=== PATIENT | male | born 1985 | race Caucasian/White ===

== ENCOUNTER 2019-03-12 12:53 | Emergency (ER) | payer OTHER, BC ==
[2019-03-12 13:02] VITALS: BP 133/80; PULSE 87; TEMP 97.7; BMI 23.6
--- NOTE | 2019-03-12 13:26 | PDOC ---
History of Present Illness - General Chief Complaint: Pain Stated Complaint: NECK/SHOULDER PAIN Time Seen by Provider: 03/12/19 13:03 History Source: Patient Exam Limitations: No Limitations - History of Present Illness Initial Comments: 03/12/19 13:22 HISTORY OF PRESENT ILLNESS: 33-year-old right-handed male who presents to the emergency department for pain management status post AC separation in his left shoulder. 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 Patient presented to urgent care had an x-ray done and was diagnosed with an AC separation. Patient was seen by an orthopedist at that time and an MRI was scheduled for Thursday for reevaluation of the shoulder. Patient was instructed to take Naprosyn, apply ice and wear a sling. Patient has been compliant with ice and Naprosyn but is letting his left shoulder having which she reports makes him feel better. Patient now noticing some muscle tension in his neck bilaterally. He denies any trauma, fevers, chills or headaches. No recent travel or sick contacts. PAST MEDICAL HISTORY: Denies past medical history SURGICAL HISTORY: Denies ALLERGIES: No known drug allergies REVIEW OF SYSTEMS General/Constitutional: Denies fever or chills. Denies weakness, weight change. HEENT: Denies change in vision. Denies ear pain or discharge. Denies sore throat. Cardiovascular: Denies chest pain or shortness of breath. Respiratory: Denies cough, wheezing, or hemoptysis. Gastrointestinal: Denies nausea, vomiting, diarrhea or constipation. Denies rectal bleeding. Genitourinary: Denies dysuria, frequency, or change in urination. Musculoskeletal: See HPI Skin and breasts: Denies rash or easy bruising. Neurologic: Denies headache, vertigo, loss of consciousness, or loss of sensation. Psychiatric: Denies depression or anxiety. Endocrine: Denies increased thirst. Denies abnormal weight change. Hematologic/Lymphatic: Denies anemia, easy bleeding, or history of blood clots. Allergic/Immunologic: Denies hives or skin allergy. Denies latex allergy. PHYSICAL EXAM General Appearance: Well-appearing, appropriately dressed. No apparent distress , no intoxication. Neck: Supple. Trachea midline. No tenderness, rigidity, carotid bruit, stridor , lymphadenopathy, or thyromegaly. Palpable muscle spasms present in bilateral sternocleidomastoids. Respiratory/Chest: Lungs CTAB. No shortness of breath, chest tenderness, respiratory distress, accessory muscle use. No crackles, rales, rhonchi, stridor , wheezing, dullness Cardiovascular: RRR. S1, S2. No JVD, murmur, bradycardia, tachycardia. Vascular Pulses: Radial (R): 2+, radial (L): 2+ Lymphatic: No adenopathy, tenderness. Musculoskeletal/Extremities: Palpable separation noted in the left AC joint. Decreased range of motion of the left shoulder secondary to pain. Neurovascularly intact. Integumentary: Appropriate color, dry, warm. 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 Fully oriented, alert. Appropriate mood/affect. Motor strength 5/5. No appreciable EOM palsy, facial droop or sensory deficit. Past History - Past Medical History Allergies/Adverse Reactions: Allergies Allergy/AdvReac Type Severity Reaction Status Date / Time No Known Allergies Allergy Verified 03/12/19 13:01 Home Medications: Ambulatory Orders Ibuprofen [Motrin -] 600 mg PO QID PRN 03/12/19 Methocarbamol [Robaxin -] 1,000 mg PO TID #30 tablet 03/12/19 COPD: No - Psycho Social/Smoking Cessation Hx Smoking History: Never smoked *Physical Exam - Vital Signs Last Vital Signs Temp Pulse Resp BP Pulse Ox 97.7 F 87 18 133/80 100 03/12/19 13:01 03/12/19 13:01 03/12/19 13:01 03/12/19 13:01 03/12/19 13:01 Medical Decision Making - Medical Decision Making 03/12/19 13:21 A/P: 33-year-old male with previous diagnosis of shoulder here for pain management Palpable separation in the left AC joint Patient with MRI scheduled on Thursday for reevaluation of the shoulder Patient is refusing pain medication at this time as he is taking care of his 5- year-old son. Patient instructed continue taking Naprosyn as previously prescribed and may add Tylenol for additional pain relief. Patient also encouraged to continue with ice usage as well as using his sling which she has not been doing. I will add a prescription for Robaxin to help with muscle relaxation. Discharge home 03/12/19 13:25 Discharge - Discharge Information Problems reviewed: Yes Clinical Impression/Diagnosis: Neck muscle spasm Shoulder pain, acute Qualifiers: Laterality: left Qualified Code(s): M25.512 - Pain in left shoulder Condition: Fair Disposition: HOME - Admission No - Additional Discharge Information Prescriptions: Methocarbamol [Robaxin -] 1,000 mg PO TID #30 tablet - Follow up/Referral - Patient Discharge Instructions Additional Instructions: Keep appointment for MRI on Thursday. Continue taking Naprosyn as previously prescribed. You may take Tylenol in addition to the Naprosyn to help with pain control. You be given a prescription for Robaxin. You may take 1000 mg every 8 hours as needed for pain. Use sling as previously instructed. Return to emergency department for any new or worsening symptoms. Thank you very much for choosing us to provide your emergent health care needs. - Post Discharge Activity
== END 2019-03-12 13:34 | disposition home or self-care (01) ==
LOC: JERFT 12:53
DX: M62.838 Other muscle spasm (principal); S43.102D Unspecified dislocation of left acromioclavicular joint, subsequent encounter; X50.0XXD Overexertion from strenuous movement or load, subsequent encounter
CPT/HCPCS: 99282-25